=== PATIENT | male | born 2000 | race African-American/Black ===

== ENCOUNTER → 2023-12-04 10:03 | Outpatient (BNVA) | payer OTHER, SELFPAY | PROVIDERS: PCP Pediatrics; Visit Provider Physician Assistant Surgical ==

== ENCOUNTER 2024-01-08 08:03 | Outpatient (AMB) | payer OTHER, SELFPAY ==
--- NOTE | 2024-01-08 12:21 | MHC.OFFVISWM ---
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*: Details: Start time: 12.15pm, End time: 12.51pm ?I spent 31 minutes speaking with the patient on the phone plus an additional 5 minutes reviewing and updating records for a total of 36 minutes HPI Comments Details: Previous weight loss efforts: none Wakes up: 3.30am, Sleeps: 11pm Breakfast: skips Lunch: skips Dinner: 4pm (chicken, rice and beans) Snacks: 11am (chips), 10pm (chips) Exercise: regular bike Fluids: Coffee: none, tea: none, soda: none, juice: 2-3/wk, ETOH: none PFSH Medical History (Updated 01/08/24 @ 12:48 by Chava Skelton MD) DJD (degenerative joint disease) Hyperlipidemia Hypertension Obstructive sleep apnea on CPAP BMI 37.0-37.9, adult Obesity Surgical History (Updated 12/04/23 @ 12:36 by Muna Lorenz CMA) Hx of anterior cruciate ligament surgery Family History (Updated 12/04/23 @ 12:36 by Muna Lorenz CMA) Family/Other No problems noted. Social History (Updated 12/04/23 @ 12:36 by Muna Lorenz CMA) Alcohol intake: never Patient Tobacco Use Status: Never used Tobacco Telehealth Telehealth Telehealth Platform: Telephone Location of provider rendering services: practice address Location of patient: address on file Patient Identification confirmed using: Name, : Yes Telehealth method: voice only Patient verbally consented to treatment: Yes Patient verbally consented to billing insurance company: Yes Patient informed of any privacy concerns related to visit: Yes Minutes spent on Phone/Video with Pt.: 36 Assessment & Plan Assessment & Plan (1) Obesity: Code(s): E66.9 - Obesity, unspecified Category: Medical Qualifiers: Obesity type: due to excess calories Obesity classification: adult class 2 (BMI 35 - 39.9) Serious obesity comorbidity presence: with serious comorbidity Body mass index: BMI 37.0-37.9 Qualified Code(s): E66.01 - Morbid (severe) obesity due to excess calories; Z68.37 - Body mass index [BMI] 37.0-37.9, adult Plan: 1.? Plan for lap sleeve gastrectomy. If diaphragmatic or ventral hernias are present at time of surgery, these will be repaired laparoscopically as well. Risks and complications include possible conversion to an open procedure, anastomotic leak, bleeding requiring transfusion, small bowel obstruction, , DVT and pulmonary embolism, cardiac, or pulmonary complications, as mcc complications such as anastomotic ulcer, insufficient weight loss and vitamin deficiencies. I emphasized the importance of close follow-up, adherence to instructions and good communication. 2. You will receive a link of our software raphael to generate an individualized nutritional and exercise plan specific for you. Please send me a screenshot of the plans you will generate Meal to include lean meat (beef, fish, pork, turkey, chicken), or anguillan yogurt, or egg whites, or beans with a salad with olive oil and fruits (berries, pears, apples, kiwi). Avoid salt, breads, potatoes, rice, pasta, desserts. ?3. If you choose shakes, each shake would be drunk slowly, like coffee in a period of 2 hours. ?4. If you choose bars, cut each bar in 4 pieces and eat each piece in 30min ?to make each bar last 2 hours. ?5. I emphasized the importance of measuring accurately the food portion and measure it when serving the food in plate ?6. The meal portions include a specific number of forks of meat and salad. You always eat the meat portion but you can replace up to half of salad/vegetables portion with rice, potatoes or pasta, or a fruit ?if you like. The less you do it the better weight loss will be. ?7. One full-size fork is what it can be scooped on the fork without falling aside and not what can be bit with the fork. Use regular forks like those you find in a typical restaurant. ?8.? Please send me weight measurements as soon as possible and then once a week. Always include your diet and exercise plan. 9. The best choice would be to purchase a stationary bike, elliptical or treadmill at home that can track calories. Let me know if you do so I can give you an exercise plan. ?10. Goal is to lose at least 1.5-2lbs per week ?11. Goal to lose 10% of your weight before surgery, which is about 25lbs. Ultimate weight goal: 220lbs before surgery 12. Please follow the diet plan exactly without any change. If you don't like something about the plan or you feel hungry you need to communicate with me so I can help you revise the plan. You should not change the plan yourself. 13. To be scheduled for EGD to assess the stomach's anatomy. The possibility of biopsies was discussed. Patient needs to avoid use of NSAIDs and aspirin for 1 week prior to EGD. Risks of perforation and bleeding was discussed with the patient. This will be an outpatient procedure with IV sedation. Orders: Orders H Pylori Breath Test Today E66.9 - Obesity, unspecified, E78.5 - Hyperlipidemia, unspecified, G47.33 - Obstructive sleep apnea (adult) (pediatric), I10 - Essential (primary) hypertension, Z68.37 - Body mass index [BMI] 37.0-37.9, adult Complete Blood Count Auto Diff Today E66.9 - Obesity, unspecified, E78.5 - Hyperlipidemia, unspecified, G47.33 - Obstructive sleep apnea (adult) (pediatric), I10 - Essential (primary) hypertension, Z68.37 - Body mass index [BMI] 37.0-37.9, adult Comprehensive Met. Panel Today E66.9 - Obesity, unspecified, E78.5 - Hyperlipidemia, unspecified, G47.33 - Obstructive sleep apnea (adult) (pediatric), I10 - Essential (primary) hypertension, Z68.37 - Body mass index [BMI] 37.0-37.9, adult Vitamin B12 and Folate Today E66.9 - Obesity, unspecified, E78.5 - Hyperlipidemia, unspecified, G47.33 - Obstructive sleep apnea (adult) (pediatric), I10 - Essential (primary) hypertension, Z68.37 - Body mass index [BMI] 37.0-37.9, adult Zinc Today E66.9 - Obesity, unspecified, E78.5 - Hyperlipidemia, unspecified, G47.33 - Obstructive sleep apnea (adult) (pediatric), I10 - Essential (primary) hypertension, Z68.37 - Body mass index [BMI] 37.0-37.9, adult C Reactive Protein Today E66.9 - Obesity, unspecified, E78.5 - Hyperlipidemia, unspecified, G47.33 - Obstructive sleep apnea (adult) (pediatric), I10 - Essential (primary) hypertension, Z68.37 - Body mass index [BMI] 37.0-37.9, adult Vitamin B1 Today E66.9 - Obesity, unspecified, E78.5 - Hyperlipidemia, unspecified, G47.33 - Obstructive sleep apnea (adult) (pediatric), I10 - Essential (primary) hypertension, Z68.37 - Body mass index [BMI] 37.0-37.9, adult Vitamin A Today E66.9 - Obesity, unspecified, E78.5 - Hyperlipidemia, unspecified, G47.33 - Obstructive sleep apnea (adult) (pediatric), I10 - Essential (primary) hypertension, Z68.37 - Body mass index [BMI] 37.0-37.9, adult TSH reflex Free T4 Today E66.9 - Obesity, unspecified, E78.5 - Hyperlipidemia, unspecified, G47.33 - Obstructive sleep apnea (adult) (pediatric), I10 - Essential (primary) hypertension, Z68.37 - Body mass index [BMI] 37.0-37.9, adult Ferritin Today E66.9 - Obesity, unspecified, E78.5 - Hyperlipidemia, unspecified, G47.33 - Obstructive sleep apnea (adult) (pediatric), I10 - Essential (primary) hypertension, Z68.37 - Body mass index [BMI] 37.0-37.9, adult US abdomen comp w elastography Today E66.9 - Obesity, unspecified, E78.5 - Hyperlipidemia, unspecified, G47.33 - Obstructive sleep apnea (adult) (pediatric), I10 - Essential (primary) hypertension, Z68.37 - Body mass index [BMI] 37.0-37.9, adult ECG 12 lead EKG Today E66.9 - Obesity, unspecified, E78.5 - Hyperlipidemia, unspecified, G47.33 - Obstructive sleep apnea (adult) (pediatric), I10 - Essential (primary) hypertension, Z68.37 - Body mass index [BMI] 37.0-37.9, adult FL upper GI w air Today E66.9 - Obesity, unspecified, E78.5 - Hyperlipidemia, unspecified, G47.33 - Obstructive sleep apnea (adult) (pediatric), I10 - Essential (primary) hypertension, Z68.37 - Body mass index [BMI] 37.0-37.9, adult Insulin Today E66.9 - Obesity, unspecified, E78.5 - Hyperlipidemia, unspecified, G47.33 - Obstructive sleep apnea (adult) (pediatric), I10 - Essential (primary) hypertension, Z68.37 - Body mass index [BMI] 37.0-37.9, adult Hemoglobin A1c Today E66.9 - Obesity, unspecified, E78.5 - Hyperlipidemia, unspecified, G47.33 - Obstructive sleep apnea (adult) (pediatric), I10 - Essential (primary) hypertension, Z68.37 - Body mass index [BMI] 37.0-37.9, adult Lipid Panel Today E66.9 - Obesity, unspecified, E78.5 - Hyperlipidemia, unspecified, G47.33 - Obstructive sleep apnea (adult) (pediatric), I10 - Essential (primary) hypertension, Z68.37 - Body mass index [BMI] 37.0-37.9, adult IRON PROFILE Today E66.9 - Obesity, unspecified, E78.5 - Hyperlipidemia, unspecified, G47.33 - Obstructive sleep apnea (adult) (pediatric), I10 - Essential (primary) hypertension, Z68.37 - Body mass index [BMI] 37.0-37.9, adult Vitamin D 25-OH Total Today E66.9 - Obesity, unspecified, E78.5 - Hyperlipidemia, unspecified, G47.33 - Obstructive sleep apnea (adult) (pediatric), I10 - Essential (primary) hypertension, Z68.37 - Body mass index [BMI] 37.0-37.9, adult XR chest 2V Today E66.9 - Obesity, unspecified, E78.5 - Hyperlipidemia, unspecified, G47.33 - Obstructive sleep apnea (adult) (pediatric), I10 - Essential (primary) hypertension, Z68.37 - Body mass index [BMI] 37.0-37.9, adult Referrals Behavioral Health Referral E66.9 - Obesity, unspecified, E78.5 - Hyperlipidemia, unspecified, G47.33 - Obstructive sleep apnea (adult) (pediatric), I10 - Essential (primary) hypertension, Z68.37 - Body mass index [BMI] 37.0-37.9, adult Nutrition/Dietitian Referral E66.9 - Obesity, unspecified, E78.5 - Hyperlipidemia, unspecified, G47.33 - Obstructive sleep apnea (adult) (pediatric), I10 - Essential (primary) hypertension, Z68.37 - Body mass index [BMI] 37.0-37.9, adult
[2024-01-08 12:30] VITALS: BMI 37.8
== END 2024-01-08 12:52 | disposition home or self-care (01) ==
LOC: HO.HBS 08:03
PROVIDERS: PCP Pediatrics; Visit Provider Surgery
DX: E66.01 Morbid (severe) obesity due to excess calories (principal); Z68.37 Body mass index [BMI] 37.0-37.9, adult
CPT/HCPCS: 99203

== ENCOUNTER → 2024-01-08 08:03 | Outpatient (BNVA) | payer OTHER, SELFPAY | PROVIDERS: PCP Pediatrics; Visit Provider Surgery ==

== ENCOUNTER 2024-04-29 11:51 | Outpatient (REF) | payer MEDICAID, SELFPAY ==
--- NOTE | ~2024-04-29 | XR_ITS ---
CLINICAL HISTORY: E66.9 - Obesity, unspecified Chest two-view Comparison: None Findings: Clear lungs. No consolidation, venous distention, pulmonary edema, pleural effusion or pneumothorax. Normal heart size and mediastinal contour. Bones, soft tissues and upper abdomen are unremarkable. IMPRESSION: No acute cardiopulmonary process. This document has been electronically signed by: João Kwok MD on 05/02/2024 12:58:17
[2024-04-29 12:08] LABS: MANUAL DIFF FLAG NO
[2024-04-29 12:31] LABS: Basophils Percent Auto 0.3 % (0-2); Eosinophils Percent Auto 0.7 % (0-4); Hematocrit 45.3 % (42.0-52.0); Hemoglobin 15.2 g/dl (14.0-18.0); Imm Gran Abs Auto 0.02 X10*3/uL (0.00-0.03); Imm Gran Pct Auto 0.3 % (0.0-0.4); Lymphocytes Absolute Auto 1.7 X10*3/uL (1.2-4.9); Lymphocytes Percent Auto 29.2 % (20-40); Mean Corpuscular HGB Conc 33.6 g/dl (31.0-36.0); Mean Corpuscular Volume 86.3 fL (80.0-98.0); Mean Platelet Volume 9.3 fL (9.4-12.4); Monocytes Absolute Auto 0.6 X10*3/uL (0.1-1.2); Monocytes Percent Auto 9.3 % (2-11); Neutrophils Absolute Auto 3.6 x10*3/uL (2.0-8.3); Neutrophils Percent Auto 60.2 % (45-73); Platelet Count 291 X10*3/uL (160-400); Red Blood Count 5.25 X10*6/uL (4.60-5.80); Red Cell Distribution Width 12.6 % (11.0-16.0); White Blood Count 5.9 X10*3/uL (4.8-10.8)
[2024-04-29 12:55] LABS: Estimated Average Glucose 103 mg/dL; Hemoglobin A1C 124.0352 umol/L; Hemoglobin A1c % 5.2 % (<6.0); Total Hemoglobin (HGBA1C) 3722.9759 umol/L
[2024-04-29 13:16] LABS: Alanine Aminotransferase 60 U/L (0-40); Alkaline Phosphatase 71 U/L (39-117); Anion Gap 11 (12-20); Aspartate Amino Transferase 42 U/L (5-37); Bilirubin Total 1.1 mg/dL (0.0-1.0); Blood Urea Nitrogen 15 mg/dL (9-16); C Reactive Protein 0.86 mg/dL (< or = 0.50); Calcium 9.6 mg/dL (8.4-10.2); Carbon Dioxide 24 mmol/L (22-29); Chloride 106 mmol/L (96-108); Cholesterol 242 mg/dL (<200); Estimated Glomerular Filt Rate > 60; Glucose Random 95 mg/dL (60-115); HDL Cholesterol 39 mg/dL (>40); Iron 110 mcg/dL (45-160); LDL Cholesterol Calculated 181 mg/dL (<100); Percent Iron Saturation 41 % (15-50); Potassium 3.8 mmol/L (3.3-5.1); Sodium 137 mmol/L (135-145); Total Iron Binding Capacity 271 mcg/dL (228-428); Total Protein 8.5 g/dL (6.5-8.0); Triglycerides 113 mg/dL (<150); Unsaturated Iron Binding 161 ug/dL
[2024-04-29 13:26] LABS: Ferritin 265 ng/mL (20-250); Insulin 13 uU/mL (2-29); TSH reflex Free T4 2.24 uIU/mL (0.32-4.0); Vitamin D 25-OH Total 13.4 ng/mL (>30)
[2024-04-29 13:36] LABS: Vitamin B12 393 pg/mL (200-900)
[2024-05-03 22:07] LABS: Zinc 88 mcg/dL (60-130)
[2024-05-04 00:42] LABS: Vitamin A 59 mcg/dL (38-98)
[2024-05-05 15:54] LABS: Vitamin B1 13 nmol/L (8-30)
== END 2024-04-29 11:52 | disposition home or self-care (01) ==
LOC: HO.XRAY 11:51
PROVIDERS: PCP Pediatrics; Visit Provider Surgery
DX: E66.9 Obesity, unspecified (principal); Z68.37 Body mass index [BMI] 37.0-37.9, adult; G47.33 Obstructive sleep apnea (adult) (pediatric); I10 Essential (primary) hypertension; E78.5 Hyperlipidemia, unspecified
CPT/HCPCS: 36415; 71046; 80053; 80061; 82306; 82607; 82728; 82746; 83036; 83525; 83540; 84425; 84443; 84590; 84630; 85025; 86140

== ENCOUNTER → 2024-04-29 12:07 | Outpatient (BNV) | payer OTHER, SELFPAY | PROVIDERS: PCP Pediatrics; Visit Provider Radiology Diagnostic Radiology | DX: Z01.818 Encounter for other preprocedural examination (principal) | CPT/HCPCS: 71046 ==

== ENCOUNTER 2025-01-31 12:11 | Outpatient (AMB) | payer OTHER, SELFPAY ==
--- NOTE | 2025-01-31 12:09 | MHC.WMTHER ---
Intake Intake Visit Reasons: TV BH Intake Allergies shrimp (SHRIMP) Allergy (Unknown, Verified 01/08/24 12:21) DIFFICULTY BREATHING PFSH Medical History (Updated 04/29/24 @ 19:38 by Chava Skelton MD) DJD (degenerative joint disease) Hyperlipidemia Hypertension Obstructive sleep apnea on CPAP BMI 37.0-37.9, adult Obesity Surgical History (Updated 12/04/23 @ 12:36 by Muna Lorenz CMA) Hx of anterior cruciate ligament surgery Family History (Updated 12/04/23 @ 12:36 by Muna Lorenz CMA) Family/Other No problems noted. Social History (Updated 12/04/23 @ 12:36 by Muna Lorenz CMA) Alcohol intake: never Patient Tobacco Use Status: Never used Tobacco Behavioral Health Assessment Weight Management Therapy Therapy Notes Details PT is a 24 years old self-referred male, who presents for a initial visit to start BH assessment as part of surgical weight loss program. PT started the program on 01/08/2024 at 245Lbs, and the initial goal was to lose 10% of his weight before surgery, which is about 25lbs. PT discontinued the program as he was out of state due to work and returned recently, he will be staying in [place] and feels ready to fully commit. Presenting Concerns Referral Source WMP-Provider. Reason for referral Completion of behavioral health assessment as part of process for weight-loss surgery. Precipitating Event Obesity. Living Situation Current Living Situation Relative's/Guardian's Jerardo and Rent At risk of losing current housing? No Satisfied with current living situation? Yes Comments PT rents a bedroom at his mother's home. Food/Weight/Diet Expectations of change Most recent weight: 235Lbs. PT is implementing the following: Current meal plan: Combination of shakes, bars, and 1 meal per day. Started implementing about 2 weeks ago. Exercise plan: treadmill. Has not started. Scale: Yes. Communication with/ provider: started communicating with provider 2 days ago, needs to send it on Tuesdays. Social History Family history and relationship PT is single. He has a 2-year-old daughter. Recently from the mother. Parents are alive, he is very close to his mother, he has 3 siblings, 2 sisters and 1 brother, he is the youngest. He was raised by his mother and stepfather. He started having a relationship with his bio-father recently. PT reports he has a good relationship with family in general. Parental/Familial manager behavioral obligations Pt shares care for his 2 year old daughter but they don't have a formal custody agreement per court. Developmental history and status PT reported a history of ADD in childhood. Currently WNL. Social support Mother, siblings. Community support None Christianity/Spirituality None. Cultural/Ethnic information . PT was born and raised in [place], moved to [place] in 2017. Legal Involvement and History Current or historical involvement with the legal system? None reported. Education Highest grade completed 10th. Welding trainning. Currently enrolled in educational program? No Interested in further educational program? Yes Educational Interests/Skills Wants to get Hi[employer]. 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 No Meaningful activities Activities with daughter. Financial Situation Describe current financial situation Comfortable and Occasional struggle Service Service? No Mental Health and Addiction Treatment Current/Past substance abuse? No Comments Alcohol: None. Cigarettes/Tobacco: None. Cannabis/Edibles: smoke 2 times at week. Current/Past addictive behavior concerns? No Psychiatric history PT reports he is not currently in any type of MH treatment, but he attended counseling several years ago to handle difficulties with his relationship with his father. Denies having been given any formal diagnosis, but in childhood, he had an IEP for ADD while in elementary school. PT denies any history of hospitalization and/or MH crisis. Also, there is no reported history of safety concerns around SI/SA. PT shared self-harming behavior (cutting) in childhood. Denies engaging in any type of self-harming as an adult. Medical and Physical Health Summary Additional Medical History not covered in history None aditional Sexual History concerns None reported Physical exam in the last year? No Pain Screening Current pain? No Pain in the last few months? No Comments right Knee pain after a surgery. Medications Is the patient compliant with medications? Not applicable Does the patient have Bueno Guardian in place? Not applicable Does the patient use complimentary health approaches? No Trauma/Abuse History History of trauma? No (VIRGILIO:1) Questionnaires Binge Eating Scale Group 1 A. I don't feel self-conscious about my wt. or body size when I'm with others. B. I feel concerned about how I look to others, but it normally does not make me fell disappointed with myself C. I do get self-conscious about my appearance and wt. which makes me feel disappointed in myself. D. I feel very self-conscious about my wt. and frequently I feel intense shame and disgust for myself. I try to avoid social contacts because of my self-consciousness. Response Group 1: D Group 2 A. I don't have any difficulty eating slowly in the proper manner. B. Although I seem to gobble down foods, I don't end up feeling stuffed because of eating to much. C. At times, I tend to eat quickly and then, I feel uncomfortably full afterwards. D. I have the habit of bolting down my food, without really chewing it. When this happens I usually feel uncomfortably stuffed because I've eaten to much. Response Group 2: C Group 3 A. I feel capable to control my eating urges when I want to. B. I feel like I have failed to control my eating more than the average person. C. I feel utterly helpless when it comes to feeling in control of my eating urges. D. Because I feel so helpless about controlling my eating I have become very desperate about trying to get control. Response Group 3: B Group 4 A. I don't have the habit of eating when I'm bored. B. I sometimes eat when I'm bored, but often I'm able to get busy and get my mind off food. C. I have a regular habit of eating when I'm bored, but occasionally, I can use some other activity to get my mind off eating. D. I have a strong habit of eating when I'm bored. Nothing seems to help me breath the habit. Response Group 4: D Group 5 A. I'm usually physically hungry when I eat something. B. Occasionally, I eat something on impulse even though I really am not hungry. C. I have the regular habit of eating foods, that I might not really enjoy, to satisfy a hungry feeling even though physically, I don't need the food. D. Although I'm not physically hungry, I get a hungry feeling in my mouth that only seems to be satisfied when I eat a food, like sandwich, that fills my mouth. Sometimes, when I eat the food to satisfy my mouth hunger, I then spit the food out so I won't gain weight. Response Group 5: A Group 6 A. I don't feel any guilt or self-hate after I overeat. B. After I overeat, occasionally I feel guilt or self-hate. C. Almost all the time I experience strong guilt or self-hate after I overeat. Response Group 6: C Group 7 A. I don't lose total control of my eating when dieting even after periods when I overeat. B. Sometimes when I eat a forbidden food on a diet, I feel like I blew it and eat even more. C. Frequently, I have the habit of saying to myself, I've blown it now, why not go all the way, when I overeat on a diet. When that happens I eat more. D. I have a regular habit of starting a strict diets for myself but I break the diets by going on an eating binge. My life seems to be either a feast or famine. Response Group 7: D Group 8 A. I rarely eat so much food that I feel uncomfortably stuffed afterwards. B. Usually about once a month, I each such a quantity of food, I end up feeling very stuffed. C. I have regular periods during the month when I eat large amounts of food, either at mealtime or at snacks. D. I eat so much food that I regularly feel quite uncomfortable after eating and sometimes a bit nauseous. Response Group 8: D Group 9 A. My level of calorie intake does not go up very high or go down very low on a regular basis. B. Sometimes after I overeat, I will try to reduce my caloric intake to almost nothing to compensate for the excess calories I've eaten. C. I have a regular habit of overeating during the night. It seems that my routine is not to be hungry in the morning but overeat in the evening. D. In my adult years, I have had week-long periods where I practically starve myself. This follows periods when I overeat. It seems I live a life of either feast or famine. Response Group 9: B Group 10 A. I usually am able to stop eating when I want to. I know when enough is enough. B. Every so often, I experience a compulsion to eat which I can't seem to control. C. Frequently, I experience strong urges to eat which I seem unable to control, but at other times I can control my eating urges. D. I feel incapable of controlling urges to eat. I have a fear of not being able to stop eating voluntarily. Response Group 10: C Group 11 A. I don't have any problem stopping eating when I feel full. B. I usually can stop eating when I feel full but occasionally overeat leaving me feeling uncomfortably stuffed. C. I have a problem stopping eating once I start and usually I feel uncomfortably stuffed after I eat a meal. D. Because I have a problem not being able to stop eating when I want, I sometimes have to induce vomiting to relieve my stuffed feeling. Response Group 11: A Group 12 A. I seem to eat just as much when I'm with others, Family social gatherings as when I'm by myself. B. Sometimes, when I'm with other persons, I don't eat as much as I want to eat because I'm self-conscious about my eating. C. Frequently, I eat only a small amount of food when others are present, because I'm very embarrassed about my eating. D. I feel so ashamed about overeating that I pick times to overeat when I know no one will see me. I feel like a closet eater. Response Group 12: C Group 13 A. I eat three meals a day with only an occasional between meal snack. B. I eat 3 meals a day, but I also normally snack between meals. C. When I am snacking heavily, I get in the habit of skipping regular meals. D. There are regular periods when I seem to be continually eating, with no planned meals. Response Group 13: D Group 14 A. I don't think much about trying to control unwanted eating urges. B. At least some of the time, I feel my thoughts are pre-occupied with trying to control my eating urges. C. I feel that frequently I spend much time thinking about how much I ate or about trying not to eat anymore. D. It seems to me that most of my waking hours are pre-occupied by thoughts about eating or not eating. I feel like I'm constantly struggling not to eat. Response Group 14: C Group 15 A. I don't think about food a great deal. B. I have strong craving for food but they last only for brief periods of time. C. I have days when I can't seem to think about anything else but food. D. Most of my days seem to be pre-occupied with thoughts about food. I feel like I live to eat. Response Group 15: B Group 16 A. I usually know whether or not I'm physically hungry. I take the right portion of food to satisfy me. B. Occasionally, I feel uncertain about knowing whether or not I'm physically hungry. A these times it's hard to know how much food I should take to satisfy me. C. Even though I might know how many calories I should eat, I don't have any idea what is a normal amount of food for me. Response Group 16: C Binge Eating Score: 30 Score less than 17 Minimal Risk Score between 18-26 Moderate Risk Score between 27-46 High Risk Assessment & Plan Assessment & Plan (1) Adjustment disorder: Code(s): F43.20 - Adjustment disorder, unspecified Qualifiers: Adjustment disorder type: unspecified type Qualified Code(s): F43.20 - Adjustment disorder, unspecified (2) Pre-bariatric surgery psychological evaluation: Code(s): Z71.89 - Other specified counseling Plan The patient was not cleared today as the assessment was not completed. The patient will return in 2-4 weeks to continue the evaluation. Next appointment: 02/20/2025 at 2pm, video. Telehealth Telehealth Telehealth Platform: [facility] Location of provider rendering services: other (Home office. [place], [place]) Location of patient: address on file Patient Identification confirmed using: Name, : Yes Telehealth method: video Patient verbally consented to treatment: Yes Patient verbally consented to billing insurance company: Yes Patient informed of any privacy concerns related to visit: Yes Minutes spent on Phone/Video with Pt.: 50 Coding Level of Care Code New Pt Tele Psy Diag Evvasile (47067) Patient Type New Diagnoses Adjustment disorder, unspecified type F43.20 Adjustment disorder type: unspecified type Pre-bariatric surgery psychological evaluation Z71.89 Time Spent (min) 50
--- OUTSIDE RECORDS SUMMARY | 2025-01-31 15:09 | XMS_ITS ---
[facility] Name [facility] Organization Unknown Results Test Name/Text Value Interpretation Date Range Source FLUAV RNA Spec Ql TIANNA+probe Negative Normal 08/22/2024 [facility] FLUBV RNA Spec Ql TIANNA+probe Positive Critical 08/22/2024 [facility] SARS-CoV-2 RNA Resp Ql TIANNA+probe Negative Normal 08/22/2024 [facility] RSV RNA Spec Ql TIANNA+probe Negative Normal 08/22/2024 [facility] Potassium SerPl-sCnc 4.1 mmol/L Normal 08/22/2024 3.5 - 5 .1 [facility] Bilirub SerPl-mCnc 0.3 mg/dL Normal 08/22/2024 0.2 - 1 [facility] CO2 SerPl-sCnc 30.0 mmol/L Normal 08/22/2024 21 - 32 [facility] Glucose SerPl-mCnc 95.0 mg/dL Normal 08/22/2024 65 - 99 [facility] ALP SerPl-cCnc 70.0 U/L Normal 08/22/2024 46 - 116 [facility] eGFRcr SerPlBld CKD-EPI 2020 92.0 mL/min/1.73m2 Normal 08/22/2024 - [facility] Chloride SerPl-sCnc 102.0 mmol/L Normal 08/22/2024 98 - 1 07 [facility] ALT SerPl-cCnc 76.0 U/L Above high normal 08/22/2024 30 - 6 5 [facility] BUN SerPl-mCnc 16.0 mg/dL Normal 08/22/2024 7 - 18 [facility] Globulin Ser Calc-mCnc 4.1 g/dL Normal 08/22/2024 [facility] Albumin SerPl-mCnc 3.6 g/dL Normal 08/22/2024 3.4 - 5 [facility] Prot SerPl-mCnc 7.7 g/dL Normal 08/22/2024 6.4 - 8.2 [facility] Albumin/Glob SerPl 0.9 Normal 08/22/2024 [facility] Calcium SerPl-mCnc 8.5 mg/dL Normal 08/22/2024 8.5 - 10.1 [facility] Sodium SerPl-sCnc 139.0 mmol/L Normal 08/22/2024 136 - 14 5 [facility] Creat SerPl-mCnc 1.15 mg/dL Normal 08/22/2024 0.8 - 1.3 [facility] AST SerPl-cCnc 55.0 U/L Above high normal 08/22/2024 15 - 3 7 [facility] Anion Gap SerPl Calc-sCnc 7.0 mmol/L Normal 08/22/2024 5 - 15 [facility] BUN/Creat SerPl 13.9 Normal 08/22/2024 [facility] Magnesium SerPl-mCnc 2.1 mg/dL Normal 08/22/2024 1.6 - 2. 3 [facility] TSH SerPl DL<=0.005 mIU/L-aCnc 2.86 uIU/mL Normal 08/22/2024 0.34 - 4.82 [facility] Lymphocytes # Bld Auto 1.18 K/uL Normal 08/22/2024 0.76 - 4.95 [facility] Hgb Bld-mCnc 14.7 g/dL Normal 08/22/2024 13.5 - 17.5 [facility] Neutrophils # Bld Auto 1.68 K/uL Normal 08/22/2024 1.6 - 8.8 [facility] RBC # Bld Auto 5.11 M/uL Normal 08/22/2024 4.3 - 6 [facility] Monocytes NFr Bld Auto 13.9 % Above high normal 08/22/2024 4 - 12 [facility] MCHC RBC Auto-EntMCnc 32.6 g/dL Normal 08/22/2024 31 - 36 [facility] Neutrophils NFr Bld Auto 50.6 % Normal 08/22/2024 40 - 80 [facility] Imm Granulocytes # Bld Auto 0.0 K/uL Normal 08/22/2024 0 - 0.33 [facility] Imm Granulocytes NFr Bld Auto 0.0 % Normal 08/22/2024 0 - 3 [facility] RDW RBC Auto 12.2 % Normal 08/22/2024 11.5 - 14.5 [facility] WBC # Bld Auto 3.32 K/uL Below low normal 08/22/2024 4 - 11 [facility] Platelet # Bld Auto 187.0 K/uL Normal 08/22/2024 140 - 44 0 [facility] PMV Bld Auto 9.0 fL Normal 08/22/2024 8 - 12.3 [facility] MCH RBC Qn Auto 28.8 pg Normal 08/22/2024 25 - 35 [facility] Eosinophil NFr Bld Auto 0.0 % Normal 08/22/2024 0 - 5 [facility] Lymphocytes NFr Bld Auto 35.5 % Normal 08/22/2024 18 - 47 [facility] Monocytes # Bld Auto 0.46 K/uL Normal 08/22/2024 0.16 - 1 .32 [facility] RBC Auto 88.3 fL Normal 08/22/2024 83 - 101 [facility] Basophils # Bld Auto 0.0 K/uL Normal 08/22/2024 0 - 0.22 [facility] Basophils NFr Bld Auto 0.0 % Normal 08/22/2024 0 - 1 [facility] Eosinophil # Bld Auto 0.0 K/uL Normal 08/22/2024 0 - 0.55 [facility] Hct VFr Bld Auto 45.1 % Normal 08/22/2024 40 - 51 [facility] Encounters Encounter Type Encounter Reason Primary Diagnosis Location Date Emergency Influenza due to other identified influenza virus with other respiratory manifestations Influenza due to other identified influenza virus with other respiratory manifestations [facility] 08/22/2024 Emergency Exhaustion due to excessive exertion, initial encounter Exhaustion due to excessive exertion, initial encounter [facility] 07/23/2024 Care Team Organization Name Specialty Phone Email Start Date End Da te [facility] 07/24/2024
--- OUTSIDE RECORDS SUMMARY | 2025-01-31 15:09 | XMS_ITS | Clinical Summary ---
Author Organization [employer] [facility] ity Address [address] [place] [address] Care Team Providers Care Full Time Babysitter Name Role Phone Unavailable Primary Care Provider Unavailabl e Social History Tobacco Use Types Packs/Day Years Used Date Smoking Tobacco: Never Assessed Sex and Gender Information Value Date Recorded Sex Assigned at Not on file Legal Sex Male 9:51 AM EST Gender Identity Not on file Sexual Orientation Not on file Plan of Treatment Health Maintenance Due Date Last Done Comments HPV Vaccines (1 - Male 3-dos e series) 09/23/2015 DTaP,Tdap,and Td Vaccines (1 - Tdap) 09/23/2019 Hepatitis B Vaccines (1 of 3 - 19+ 3-dose series) 09/23/2019 Depression Screening 04/27/2024 COVID-19 Vaccine (1 - 2023-2 5 season) 2024 Influenza Vaccine (#1) 2024 RSV Immunization Adult Patie nts (1 - 1-dose 75+ series) 09/23/2075 HIB Vaccines Aged Out No longer eligi ble based on patient's age to complete this topic Hepatitis A Vaccines Aged Out No long er eligible based on patient's age to complete this topic IPV Vaccines Aged Out No longer eligi ble based on patient's age to complete this topic MMR Vaccines Aged Out No longer eligi ble based on patient's age to complete this topic Meningococcal ACWY Vaccine Aged Out N o longer eligible based on patient's age to complete this topic Meningococcal B Vaccine Aged Out No l onger eligible based on patient's age to complete this topic Pneumococcal Vaccine: Pediat rics (0 to 5 Years) and At-Risk Patients (6 to 49 Years) Aged Out No longer eligible b ased on patient's age to complete this topic RSV Immunization Patients Un glenroy 20 months Aged Out No longer eligible b ased on patient's age to complete this topic Varicella Vaccines Aged Out No longer eligible based on patient's age to complete this topic
== END 2025-01-31 13:17 | disposition home or self-care (01) ==
LOC: HO.HBST 12:11
PROVIDERS: PCP Pediatrics; Visit Provider Counselor Mental Health
DX: F43.20 Adjustment disorder, unspecified (principal); Z71.89 Other specified counseling
CPT/HCPCS: 90791

== ENCOUNTER 2025-02-28 11:38 | Emergency (ER) | payer OTHER, SELFPAY ==
[2025-02-28 11:54] VITALS: BP 134/68; PULSE 81; RESP 20; TEMP 37; O2SAT 96; BMI 37.8
--- NOTE | 2025-02-28 12:00 | ED_ITS ---
HPI - General Adult General Chief complaint: Back Pain/Injury Stated complaint: Back pain Time Seen by Provider: 02/28/25 12:00 Source: patient, RN notes reviewed and old records reviewed Mode of arrival: ambulatory Limitations: no limitations History of Present Illness ED Provider: Candace HPI narrative: Patient is a 24-year-old male presenting to emergency department with complaint of right lower back pain for the past 2 weeks. Denies any fall or other trauma. States that he is frequently lifting very heavy items at work. Denies radiation of pain to lower extremities. Denies saddle anesthesia or bowel or bladder incontinence. Denies any history of IV drug use. Denies recent fevers. Has not tried any PO [id number] medications, only topical cream. MD complaint: back pain Onset (ago): week(s) Related Data Previous Rx's ?Medication ?Instructions ?Recorded cholecalciferol (vitamin D3) 125 125 mcg PO DAILY #90 caps 04/29/24 mcg (5,000 unit) capsule mecobalamin (vitamin B12) 1,000 1,000 mcg sublingual D AILY #90 tabs 04/29/24 mcg disintegrating tablet,sublingual cyclobenzaprine 10 mg tablet 10 mg PO TID PRN muscle s pasm #10 02/28/25 tabs lidocaine 5 % topical patch 1 patch topical DAILY #15 ea 02/28/25 naproxen 500 mg tablet 500 mg PO BID #14 tabs 02/28 Allergies Allergy/AdvReac Type Severity Reaction Status Date / Time shrimp (SHRIMP) Allergy Unknown DIFFICULTY Verified 02/28/25 11:58 BREATHING Review of Systems Review of Systems: as per hpi Yes all other systems are reviewed and are negative Constitutional: Constitutional: Reports as per HPI [facility] Past Medical History Medical History (Updated 02/28/25 @ 12:03 by Ana M Maria NP) DJD (degenerative joint disease) Hyperlipidemia Hypertension Obstructive sleep apnea on CPAP BMI 37.0-37.9, adult Obesity Surgical History (Updated 12/04/23 @ 12:36 by Muna Lorenz CMA) Hx of anterior cruciate ligament surgery Family History Family History (Updated 12/04/23 @ 12:36 by Muna Lorenz CMA) Family/Other No problems noted. Social History Social History (Updated 12/04/23 @ 12:36 by Muna Lorenz CMA) Alcohol intake: never Patient Tobacco Use Status: Never used Tobacco Physical Exam ED Vital Signs: Vital Signs - 24 hr 02/28/25 11:54 02/28/25 12:10 Temperature 98.6 F 98.6 F Pulse Rate 81 81 Respiratory Rate 20 20 Blood Pressure 134/68 134/68 Pulse Oximetry 96 96 Oxygen Delivery Method Room Air Room Air BMI result Body Mass Index 37.8 Vital signs have been reviewed and appear to be correct. Blood pressure normal. Heart rate normal. Respiratory rate normal. Temperature normal. Oxygen saturation normal. Const General: cooperative, healthy appearing and no acute distress Orientation/consciousness: oriented to person, oriented to place, oriented to time and patient oriented x3 Limitations: no limitations HENMT Head: Yes normocephalic and Yes atraumatic Ears: external ears normal General nose exam: Normal external nose present Face and sinus: Yes face symmetric Mouth: oropharynx normal and moist mucous membranes Throat: Yes uvula midline Eyes Pupils: Equal, round and reactive pupils present Neck Neck: Yes normal visual inspection and Yes supple Resp Effort & Inspection: normal respiratory effort and able to speak in complete sentences Auscultation: clear to auscultation bilaterally Cardio Rate: regular rate Rhythm: regular rhythm Heart sounds: S1 normal heart sound present and S2 normal heart sound present GI Palpation (GI): Soft to palpation and nontender Auscultation: normoactive bowel sounds General: Yes no CVA tenderness Back/Spine/Pelvis Back: no CVA tenderness Thoracic/Lumbar Spine: thoracic and lumbar spine normal to inspection, thoraco-lumbar ROM normal, straight leg raise negative bilaterally, pain with thoraco-lumbar ROM, paraspinal muscle tenderness on the right in the upper lumbar and in the mid lumbar, No thoracic spinal tenderness and No lumbar spinal tenderness Skin General skin exam: elasticity normal and turgor normal Neuro General: oriented to person, oriented to place, oriented to time, patient oriented x3, gait normal, tone normal, moves all extremities, Normal light touch and pain sensation, no focal motor deficits, CN's II-XI intact bilaterally and deep tendon reflexes 2+ bilaterally Cranial nerves: Yes Equal, round and reactive pupils present Cognition (Neuro): normal cognition Motor exam (neuro): 5/5 motor strength present throughout, Normal motor muscle tone present throughout and Motor abnormalities not present Extrem General: Yes full ROM, Yes no pedal edema and Yes no calf tenderness Psych Mental Status: mental status grossly normal Affect: normal affect Thought process: Normal thought process present Medical Decision Making Medical Decision Making [facility] Narrative: Patient is a 24-year-old male presenting to emergency department with complaint of right lower back pain for the past 2 weeks. On exam patient is awake, A+Ox3, VS WNL, afebrile, normal neurological exam without focal deficits, physical exam findings as above. Given reported symptoms and physical exam findings, initial differential includes but is not limited to initial differential includes lumbar strain, lumbar radiculopathy, degenerative disc disease, disc herniation, spinal stenosis, spondylosis. Unlikely vertebral fracture. Do not suspect malignancy/mass, SEA, cauda equina/cord compression. Discussed with patient that given absence of traumatic injury, x-ray is not indicated at this time. Will treat with course of Flexeril, naproxen, topical lidocaine patches and advised patient to follow up with PCP for further evaluation and management of his symptoms. Return precautions discussed. Patient verbalized understanding of and agreement with plan. Differential Diagnosis Differential Diagnoses: The differential diagnosis associated with the prese ntation includes as per [facility] Admission/Observation Consideration of admission/observation: Escalation of care including admissio n/observation considered Patient would have been admitted to the hospital and transferred to appropriate facility had their clinical presentation warranted hospital admission. External Record Review External record reviewed: Inpatient record, Office record and Outpatient record Prescription Management I considered prescription management with: Pain Medication and Other Discharge Plan Discharge Clinical Impression: Strain of lumbar region Patient Disposition: Home, Self-Care Instructions: Low Back Strain (ED) Additional Instructions: You were evaluated in the emergency department today for back pain. Your evaluation did not show signs of medical conditions requiring emergent intervention at this time. You have been prescribed naproxen which is an anti- inflammatory medication. Do not take this in combination with other NSAID's (ibuprofen, Motrin or Aleve, aspirin). You can also take 650 mg of Tylenol every 6 hours. You have been prescribed a muscle relaxer called Flexeril (cyclobenzaprine) which you may take every 8 hours as needed for spasms. Do not drive, drink alcohol, or operate heavy machinery while taking this as it can cause drowsiness. You have been prescribed 5% topical lidocaine patches which you can wear for up to 12 hours in a 24 hour period. Do not apply heat directly over the patches. Please schedule an appointment for follow-up with your primary care physician this week for further evaluation of your symptoms. Return to the emergency department if you experience worsening back pain, difficulty walking, fevers, numbness, tingling, incontinence, groin numbness or tingling, or any other concerning symptoms. Prescriptions: New naproxen 500 mg tablet 500 mg PO BID Qty: 14 0RF cyclobenzaprine 10 mg tablet 10 mg PO TID PRN (Reason: muscle spasm) Qty: 10 0RF lidocaine 5 % adhesive patch,medicated 1 patch topical DAILY Qty: 15 0RF Rx Instructions: leave on most painful area for up to 12 hrs No Action cholecalciferol (vitamin D3) 125 mcg (5,000 unit) capsule 125 mcg PO DAILY Qty: 90 0RF mecobalamin (vitamin B12) 1,000 mcg tablet,disintegrating 1,000 mcg sublingual DAILY Qty: 90 0RF Rx Instructions: place tablet under tongue and allow to dissolve for at least30 secs before swallowing Stand Alone Forms: Work/School Release Interventions: ED Discharge Assessment Last Done: 02/28/25 12:10 Discharge Date/Time: 02/28/25 12:11 Print Language: Slovak
[2025-02-28 12:10] VITALS: BP 134/68; PULSE 81; RESP 20; TEMP 37; O2SAT 96
--- OUTSIDE RECORDS SUMMARY | 2025-02-28 14:52 | XMS_ITS | Clinical Summary ---
Author Organization [facility] ity Address [address] [place] [address] Care Team Providers Care Automobile Locator Name Role Phone Unavailable Primary Care Provider [...]
== END 2025-02-28 12:11 | disposition home or self-care (01) ==
PROVIDERS: Emergency Provider Emergency Medicine
DX: S39.012A Strain of muscle, fascia and tendon of lower back, initial encounter (principal); X50.0XXA Overexertion from strenuous movement or load, initial encounter; X50.9XXA Other and unspecified overexertion or strenuous movements or postures, initial encounter; Y93.9 Activity, unspecified; Y92.9 Unspecified place or not applicable
CPT/HCPCS: 99282; 99283

== ENCOUNTER → 2025-02-28 12:16 | Outpatient (REF) | payer OTHER, SELFPAY ==
--- NOTE | 2025-02-28 12:21 | ECG_ITS ---
Test Reason : E66.01 Blood Pressure : */* mmHG Vent. Rate : 76 BPM Atrial Rate : 76 BPM P-R Int : 118 ms QRS Dur : 94 ms QT Int : 358 ms P-R-T Axes : 1 49 35 degrees QTcB Int : 402 ms Normal sinus rhythm Normal ECG No previous ECGs available Referred By: Chava Skelton Electronically Signed By: Kevin Holliday
== END ==
LOC: HO.CARD 12:16
PROVIDERS: Visit Provider Surgery
DX: E66.01 Morbid (severe) obesity due to excess calories (principal); I10 Essential (primary) hypertension; E78.5 Hyperlipidemia, unspecified; Z68.37 Body mass index [BMI] 37.0-37.9, adult
CPT/HCPCS: 93005

== ENCOUNTER → 2025-02-28 12:21 | Outpatient (BNV) | payer OTHER, SELFPAY | PROVIDERS: Visit Provider Internal Medicine Cardiovascular Disease | DX: E66.01 Morbid (severe) obesity due to excess calories (principal); Z68.37 Body mass index [BMI] 37.0-37.9, adult | CPT/HCPCS: 93010 ==